=== PATIENT | male | born 1950 | race Two or more races ===

== ENCOUNTER 2019-10-10 06:16 | Inpatient (IN) | payer OTHER ==
[~2019-10-10] VITALS: Ht 177.8 cm; Wt 131.1 kg
[2019-10-10] MEDS ORDERED: FUROSEMIDE 40MG/4ML VIAL IVP ONE (06:30)
[2019-10-10 06:38] LABS: BASOPHILS % 0.8 % (0.0-2.0); EOSINOPHILS % 0.9 % (0.0-5.0); HEMATOCRIT. 44.1 % (42.0-52.0); HEMOGLOBIN. 14.2 g/dL (14.0-18.0); LYMPHOCYTES % 34.6 % (20.0-50.0); MEAN CORPUSCULAR HEMOGLOBIN 30.6 pg (28.0-32.0); MEAN CORPUSCULAR VOLUME 94.9 fL (80.0-94.0); MEAN PLATELET VOLUME 10.1 fl (7.4-10.4); MONOCYTES % 10.5 % (2.0-8.0); NEUTROPHILS % 53.2 % (40.0-76.0); PLATELET 192 x1000/uL (130-400); RED BLOOD CELL COUNT 4.64 mill/uL (4.7-6.1); RED CELL DISTRIBUTION WIDTH 18.5 % (11.6-14.6)
[2019-10-10 06:42] LABS: CHLORIDE 102 mEq/L (98-107)
[2019-10-10 08:25] LABS: BG BASE EXCESS -6.8 mmol/L (-2.0-2.0); BG CARBOXYHEMOGLOBIN 0.9 % (0.5-1.5); BG DEOXYHEMOGLOBIN 2.2 % (0.0-5.0); BG FRACTION INSPIRED OXYGEN 30; BG HCO3 ACT 17.4 mmol/L (22.0-26.0); BG METHEMOGLOBIN 0.2 % (0.0-1.5); BG OXYGEN SATURATION 97.8 % (92.0-98.5); BG OXYHEMOGLOBIN 96.7 % (94.0-97.0); BG PCO2 31.4 mmHg (35.0-45.0); BG PH 7.362 (7.350-7.450); BG PO2 116.7 mmHg (75.0-100.0); BG SAMPLE SITE RIGHT BRACHIAL; BG TOTAL HEMOGLOBIN 13.9 g/dL (12.0-18.0); BG VENT MODE MASK - BIPAP
[2019-10-10] MEDS ORDERED: ENOXAPARIN 40MG/0.4ML SYR SUBCUT SCH (11:15)
[2019-10-10] MEDS ORDERED: LORAZEPAM 0.5MG TABLET PO PRN (11:15)
[2019-10-10] MEDS ORDERED: IPRATROPIUM/ALBUTEROL 0.5-3(2.5)MG/3ML NEB NEB PRN (11:15)
[2019-10-10] MEDS ORDERED: GUAIFENESIN 200MG/10ML SUGAR FREE UDC PO PRN (11:15)
[2019-10-10] MEDS ORDERED: DOCUSATE SODIUM 100MG CAPSULE PO PRN (11:15)
[2019-10-10] MEDS ORDERED: ZOLPIDEM TARTRATE 5MG TABLET PO PRN (11:15)
[2019-10-10] MEDS ORDERED: ONDANSETRON HCL 4MG/2ML INJ IV PRN (11:15)
[2019-10-10] MEDS ORDERED: CLONIDINE 0.1MG TABLET PO PRN (11:15)
[2019-10-10] MEDS ORDERED: ACETAMINOPHEN 325MG TABLET PO PRN (11:15)
[2019-10-10] MEDS ORDERED: NITROGLYCERIN 0.4MG TABLET SL SL PRN (11:15)
[2019-10-10] MEDS ORDERED: GUAIFENESIN/DM 600MG/30MG ER TAB 12HR PO SCH (11:15)
[2019-10-10] MEDS ORDERED: DEXTROSE 50% WATER 50ML SYRINGE IV PRN (11:15)
[2019-10-10] MEDS ORDERED: MAGNESIUM/ALUMINUM HYDROXIDE/SIMETHICONE 30ML UDC PO PRN (11:15)
[2019-10-10] MEDS ORDERED: TRAMADOL 50MG TABLET PO PRN (11:15)
[2019-10-10] MEDS: INSULIN LISPRO 100 UNITS/ML SUBCUT SCH ×3 (13:20→21:00)
[2019-10-10] MEDS: BLOOD SUGAR DIAGNOSTIC STRIP TEST SCH ×3 (13:52→21:00)
[2019-10-10] MEDS: DILTIAZEM HCL 60MG TABLET PO SCH ×2 (13:52→19:28)
[2019-10-10 14:26] LABS: CREATINE KINASE MB FRACTION 4.5 ng/mL (0.5-3.6)
[2019-10-10 17:38] LABS: *AMPHETAMINES SCREEN URINE NEGATIVE (NEGATIVE); *BARBITURATES SCREEN URINE NEGATIVE (NEGATIVE); *BENZODIAZEPINES SCREEN URINE NEGATIVE (NEGATIVE); *COCAINE SCREEN URINE NEGATIVE (NEGATIVE); OPIATES URINE SCREEN NEGATIVE (NEGATIVE)
[2019-10-10 17:39] LABS: CANNABINOID URINE SCREEN NEGATIVE (NEGATIVE); PHENCYCLIDINE URINE SCREEN NEGATIVE (NEGATIVE)
[2019-10-10] MEDS ORDERED: NA PHOS,M-B/NA PHOS,DI-BA ENEMA 118ML PR PRN (20:00)
[2019-10-10] MEDS ORDERED: INSULIN GLARGINE UD 100 UNITS/ML SYR SUBCUT SCH ×2 (22:00)
[2019-10-11] VITALS (12 sets, daily range): BP systolic 118–140; BP diastolic 74–104
[2019-10-11] MEDS: DILTIAZEM HCL 60MG TABLET PO SCH ×4 (02:35→17:30)
[2019-10-11] MEDS ORDERED: INSULIN GLARGINE UD 100 UNITS/ML SYR SUBCUT SCH (03:00)
[2019-10-11 03:24] LABS: CREATINE KINASE MB FRACTION 4.2 ng/mL (0.5-3.6)
[2019-10-11] MEDS ORDERED: ASPI-1497 MT (04:06)
[2019-10-11] MEDS ORDERED: COR25 PO (04:06)
[2019-10-11] MEDS ORDERED: METF-414 MT (04:06)
[2019-10-11] MEDS ORDERED: INSLIS SUBCUT (04:06)
[2019-10-11] MEDS ORDERED: DABI150C MT (04:06)
[2019-10-11] MEDS ORDERED: SILD20TA PO (04:06)
[2019-10-11] MEDS ORDERED: ATOR40TA70 MT (04:06)
[2019-10-11] MEDS ORDERED: NITR100C MT (04:06)
[2019-10-11] MEDS ORDERED: SPIR25TA6 MT (04:06)
[2019-10-11] MEDS ORDERED: FURO80TA87 MT (04:06)
[2019-10-11] MEDS ORDERED: LISI10TA5 MT (04:06)
[2019-10-11] MEDS: BLOOD SUGAR DIAGNOSTIC STRIP TEST SCH ×3 (07:48→17:27)
[2019-10-11] MEDS: INSULIN LISPRO 100 UNITS/ML SUBCUT SCH ×3 (07:59→17:34)
[2019-10-11] MEDS ORDERED: SPIRONOLACTONE 25MG TABLET PO SCH (09:00)
[2019-10-11] MEDS ORDERED: FUROSEMIDE 40MG/4ML VIAL IVP SCH (09:00)
[2019-10-11] MEDS ORDERED: FAMOTIDINE 20MG TABLET PO SCH (09:00)
[2019-10-11] MEDS ORDERED: GUAIFENESIN/DM 600MG/30MG ER TAB 12HR PO SCH (09:00)
[2019-10-11] MEDS ORDERED: ASPIRIN 325MG EC TABLET PO SCH (09:00)
[2019-10-11] MEDS ORDERED: ENOXAPARIN 30MG/0.3ML SYR SUBCUT SCH (09:00)
[2019-10-12 15:15] LABS: METHADONE URINE SCREEN NEGATIVE (NEGATIVE)
== END 2019-10-11 21:30 | disposition short-term general hospital (02) | DRG 637 ==
LOC: ER 06:25 → 5EST 10:39 → ENRESERV 23:57 → 5EST 10-11 03:00
PROVIDERS: ADMIT Internal Medicine; ATTEND Internal Medicine
PROC: 5A09357 Assistance with Respiratory Ventilation, Less than 24 Consecutive Hours, Continuous Positive Airway Pressure (ICD-10-PCS; principal; 2019-10-10)
DX: E11.65 Type 2 diabetes mellitus with hyperglycemia (principal); N17.0 Acute kidney failure with tubular necrosis; J96.01 Acute respiratory failure with hypoxia; I50.43 Acute on chronic combined systolic (congestive) and diastolic (congestive) heart failure; E87.1 Hypo-osmolality and hyponatremia; I11.0 Hypertensive heart disease with heart failure; F17.200 Nicotine dependence, unspecified, uncomplicated; I25.10 Atherosclerotic heart disease of native coronary artery without angina pectoris; Z95.1 Presence of aortocoronary bypass graft; Z88.1 Allergy status to other antibiotic agents
CPT/HCPCS: 36415; 36600; 71045; 76770; 78582; 80053; 80061; 80305; 82375; 82550; 82553; 82805; 82962; 83036; 83880; 84484; 85025; 85379; 93005; 93306; 93970; 94660; 99291; A9558; J1650; J1815; J1940